=== PATIENT | female | born 1955 ===

== ENCOUNTER 2024-10-28 06:44 | Day surgery (SDC) | payer OTHER ==
[2024-10-26 08:40] VITALS: BP 117/80
[2024-10-26 08:56] LABS: HEMATOCRIT 40.1 % (36.0-45.00); HEMOGLOBIN 13.1 g/dL (12.0-15.00); MEAN CELL VOLUME 83.1 fL (80.00-100.00); MEAN CORPUSCULAR HEMOGLOBIN 27.2 pg (27.00-32.0); MEAN CORPUSCULAR HGB CONC 32.7 g/dl (32.0-36.0); PLATELET COUNT 305 K/uL (150-450); RED BLOOD COUNT 4.83 M/uL (4.00-6.00); RED CELL DISTRIBUTION WIDTH 14.2 % (11.5-14.5)
[2024-10-26 08:58] LABS: URINE APPEARANCE Cloudy; URINE BILIRRUBIN Negative (NEGATIVE); URINE BLOOD Moderate; URINE COLOR Yellow; URINE GLUCOSE Negative (NEGATIVE); URINE KETONE Negative (NEGATIVE); URINE LEUKOCYTE Trace; URINE NITRATE Negative; URINE UROBILINOGEN 0.2 E.U./dl
[2024-10-26 09:03] LABS: URINE BACTERIA 3483.4 uL (0.0-1933); URINE EPITHELIAL CELLS 59.3 uL (0.0-38.8); URINE RBC 64.9 uL (0.0-20.8); URINE WBC 111.1 uL (0.0-23.2)
[2024-10-26 09:21] LABS: URINE CAST 0.14 uL (0.0-1.40); URINE PROTEIN 100 (NEGATIVE)
[2024-10-26 09:33] LABS: CALCIUM 9.3 mg/dL (8.5-10.1); CREATININE SERUM 0.66 mg/dL (0.55-1.02); GFR 88.54; POTASSIUM 4.07 mEq/L (3.5-5.1)
[2024-10-26 09:34] LABS: INR 0.96; PROTHROMBIN TIME 10.5 SECONDS (9.0-11.5)
[~2024-10-28] VITALS: Ht 142.2 cm; Wt 59.9 kg
[~2024-10-28 06:44] MED LIST: MULTI VITAMIN1 EACH PO
[2024-10-28] MEDS ORDERED: CEFTRIAXONE SODIUM 2,000 MG VIAL ONE (10:41)
[2024-10-28] MEDS ORDERED: ENOXAPARIN SODIUM 40 MG/0.4 ML SYRINGE SUBCUTANEO ONE (10:41)
[2024-10-28] MEDS ORDERED: METRONIDAZOLE/SODIUM CHLORIDE 500 MG/100 ML PIGGYBACK IV ONE (10:42)
[2024-10-28] MEDS ORDERED: PERCOCET 5-3251 EACH PO (14:58)
[2024-10-28] MEDS ORDERED: NEURONTIN300 MG PO (14:58)
[2024-10-28] MEDS ORDERED: POLY119PG PO (14:58)
[2024-10-28] MEDS ORDERED: CELEBREX200MG PO (14:58)
[2024-10-28] MEDS ORDERED: MORPHINE SULFATE 2 MG/ML CARTRIDGE IV ONE (15:15)
[2024-10-28] MEDS ORDERED: MORPHINE SULFATE 4 MG/ML VIAL IV ONE ×3 (15:15→16:30)
== END 2024-10-28 17:20 | disposition home or self-care (01) ==
LOC: CIR.AMB 06:44
PROVIDERS: ATTEND Surgery
DX: K43.0 Incisional hernia with obstruction, without gangrene (principal); Z88.0 Allergy status to penicillin; Z88.2 Allergy status to sulfonamides; H52.209 Unspecified astigmatism, unspecified eye; H52.10 Myopia, unspecified eye